=== PATIENT | male | born 1950 | race Caucasian/White ===

== ENCOUNTER 2018-05-30 10:28 | Outpatient (CLI) | payer MEDICARE, OTHER | END 2018-05-30 10:29 | disposition critical access hospital (66) | LOC: EMS 10:28 | PROVIDERS: ATTEND Surgery | DX: R07.9 Chest pain, unspecified (principal); R20.0 Anesthesia of skin | CPT/HCPCS: A0425; A0429 ==

== ENCOUNTER 2018-05-30 10:46 | Emergency (ER) | payer MEDICARE ==
--- NOTE | 2018-05-30 11:05 | ED Physician Documentation ---
PD HPI CHEST PAIN - Stated complaint Stated Complaint: CHEST PAIN - Chief complaint Chief Complaint: Cardiac - History obtained from History obtained from: Patient, EMS - History of Present Illness Timing - onset: Enter time (0800), Today Timing - onset during: Rest Timing - duration: Hours (1) Timing - details: Gradual onset, Now resolved Quality: Pressure, Tightness, Pain Location: Left chest Radiation: Jaw, Neck Improved by: Nitro Associated symptoms: No: Shortness of air, Diaphoresis, Nausea, Vomiting, Feeling faint / dizzy, General Weakness, Palpitations, Cough Similar symptoms before: Diagnosis (angina) Recently seen: Clinic - Additional information Additional information: 68-year-old male with history of prostate cancer has recently undergone a chemotherapy for the prostate cancer and a 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 He was at home today when he developed some hematuria. He passed a clot in his urine and began to feel some pain in his chest on the left side. He describes the pain as a pressure and he had some radiation up into his arm of his neck and into the left side of his head. He did make his way out to his RV to get his nitroglycerin which he has never taken previously. He took a nitroglycerin and at the time the medics arrived the symptoms were mostly resolved. He states that he believes symptoms lasted about 1-1-1/2 hours. He has a prior history of CABG. Review of Systems Constitutional: denies: Fever Eyes: denies: Decreased vision Ears: denies: Ear pain Nose: denies: Congestion Throat: denies: Sore throat Cardiac: reports: Chest pain / pressure. denies: Palpitations, Pedal edema, Calf pain Respiratory: denies: Dyspnea, Cough GI: denies: Abdominal Pain, Nausea, Vomiting : reports: Dysuria, Hematuria Skin: denies: Rash Musculoskeletal: denies: Neck pain, Back pain, Extremity pain PD PAST MEDICAL HISTORY - Present Medications Home Medications: Ambulatory Orders Medication Instructions Recorded Confirmed Albuterol Sulfate [Proair Hfa 05/30/18 05/30/18 Inhaler] Aspirin 05/30/18 Atorvastatin [Lipitor] 05/30/18 Lisinopril 05/30/18 Ondansetron [Ondansetron Odt] 05/30/18 Oxybutynin [Ditropan] 05/30/18 Prochlorperazine Maleate 05/30/18 Senna [Senokot] 05/30/18 Tamsulosin HCl [Flomax] 05/30/18 oxyCODONE/ACET 5/325 [Percocet 5 05/30/18 mg/325 mg] - Allergies Allergies/Adverse Reactions: Allergies Allergy/AdvReac Type Severity Reaction Status Date / Time codeine Allergy Rash Verified 05/30/18 11:03 Penicillins Allergy Unknown Verified 05/30/18 11:03 PD ED PE NORMAL - Vitals Vital signs reviewed: Yes (hypertension ) - General General: Alert and oriented X 3, No acute distress, Well developed/nourished - HEENT HEENT: Atraumatic, PERRL, EOMI - Neck Neck: Supple, no meningeal sign - Cardiac Cardiac: RRR, No murmur - Respiratory Respiratory: No respiratory distress, Clear bilaterally - Abdomen Abdomen: Soft, Non tender - Back Back: No CVA TTP, No spinal TTP - Derm Derm: Normal color, Warm and dry, No rash - Extremities Extremities: No deformity, No edema - Neuro Neuro: Alert and oriented X 3, manager child 2-12 intact, No motor deficit, No sensory deficit, Normal speech Eye Opening: Spontaneous Motor: Obeys Commands Verbal: Oriented GCS Score: 15 - Psych Psych: Normal mood, Normal affect Results - Vitals Vitals: Vital Signs - 24 hr 05/30/18 05/30/18 10:48 13:21 Temperature 36.2 C L Heart Rate 67 61 Respiratory 18 18 Rate Blood Pressure 151/87 H 147/83 H O2 Saturation 96 94 Oxygen O2 Source Room air - EKG (time done) 1122 Rhythm: NSR [place]: LAD Ischemia: Normal ST segments Compare to prior EKG: Old EKG unavailable Computer interpretation: Agree with computer - Labs Labs: Microbiology 05/30/18 12:00 Respiratory Culture - Preliminary Sputum Laboratory Tests 05/30/18 05/30/18 05/30/18 11:20 11:38 11:38 WBC 2.9 L RBC 3.47 L Hgb 11.7 L Hct 33.0 L MCV 95.1 H MCH 33.6 H MCHC 35.3 RDW 12.2 Plt Count 111 L MPV 8.4 Neut # (Auto) 1.5 Lymph # (Auto) 1.1 L Drew # (Auto) 0.3 Eos # (Auto) 0.1 Baso # (Auto) 0.0 Absolute Nucleated RBC 0.00 Nucleated RBC % 0.1 Manual Slide Review Indicated RBC Morph Micro Appear 2+ ANISOCYTOSIS Sodium 137 Potassium 3.9 Chloride 102 Carbon Dioxide 27 Anion Gap 8.0 BUN 20 Creatinine 1.1 Estimated GFR (MDRD) 67 L Glucose 150 H Calcium 9.4 Total Bilirubin 0.5 AST 20 ALT 21 Alkaline Phosphatase 58 Troponin I Total Protein 7.2 Albumin 4.4 Globulin 2.8 Albumin/Globulin Ratio 1.6 Lipase 29 Urine Color LT RED Urine Clarity CLOUDY Urine pH 6.5 Ur Specific [place] <=1.005 Urine Protein 30 H Urine Glucose (UA) NEGATIVE Urine Ketones NEGATIVE Urine Occult Blood LARGE H Urine Nitrite NEGATIVE Urine Bilirubin NEGATIVE Urine Urobilinogen 0.2 (NORMAL) Ur Leukocyte Esterase NEGATIVE Urine RBC TNTC H Urine WBC 0-3 Ur Squamous Epith Cells NONE SEEN Urine Bacteria Rare Ur Microscopic Review INDICATED Urine Culture Comments NOT INDICATED 05/30/18 05/30/18 11:38 13:52 WBC RBC Hgb Hct MCV MCH MCHC RDW Plt Count MPV Neut # (Auto) Lymph # (Auto) Drew # (Auto) Eos # (Auto) Baso # (Auto) Absolute Nucleated RBC Nucleated RBC % Manual Slide Review RBC Morph Micro Appear Sodium Potassium Chloride Carbon Dioxide Anion Gap BUN Creatinine Estimated GFR (MDRD) Glucose Calcium Total Bilirubin AST ALT Alkaline Phosphatase Troponin I < 0.04 < 0.04 Total Protein Albumin Globulin Albumin/Globulin Ratio Lipase Urine Color Urine Clarity Urine pH Ur Specific [place] Urine Protein Urine Glucose (UA) Urine Ketones Urine Occult Blood Urine Nitrite Urine Bilirubin Urine Urobilinogen Ur Leukocyte Esterase Urine RBC Urine WBC Ur Squamous Epith Cells Urine Bacteria Ur Microscopic Review Urine Culture Comments - Rads (name of study) 2 view chest Radiology: Prelim report reviewed (Impression: No acute findings), EMP read indepedently, See rad report PD MEDICAL DECISION MAKING - ED course Complexity details: reviewed results, re-evaluated patient, considered differential, d/w patient ED course: 68-year-old male undergoing treatment for prostate cancer has developed acute hematuria. Along with this he has developed chest pain. His chest pain is resolved it lasted nearly 2 hours and he has 2 negative troponins. I suspect this is not related to a coronary syndrome. The patient has had clots past repeatedly today and he has some anxiety related to this as he has had a prior incident of clot retention and severe pain associated with this. He is asking for the catheter to take home with him should he not be able to urinate. He is diagnosed with atypical chest pain and hematuria without evidence of infection. - Sepsis Event Vital Signs: Vital Signs - 24 hr 05/30/18 05/30/18 10:48 13:21 Temperature 36.2 C L Heart Rate 67 61 Respiratory 18 18 Rate Blood Pressure 151/87 H 147/83 H O2 Saturation 96 94 Oxygen O2 Source Room air Departure - Departure Disposition: 01 Home, Self Care Clinical Impression: Atypical chest pain Hematuria Qualifiers: Hematuria type: gross Qualified Code(s): R31.0 - Gross hematuria Condition: Stable Instructions: ED Chest Pain Atypical Unkn Cause, ED Hematuria Follow-Up: Your, doctor [Other]
[2018-05-30 11:30] LABS: BILIRUBIN,URINE NEGATIVE (NEGATIVE); GLUCOSE, URINE (UA) NEGATIVE (NEGATIVE); KETONES,URINE (UA) NEGATIVE (NEGATIVE); LEUKOCYTE ESTERASE, URINE NEGATIVE (NEGATIVE); NITRITE,URINE NEGATIVE (NEGATIVE); OCCULT BLOOD,URINE LARGE (NEGATIVE); PH,URINE 6.5 PH (5.0-7.5); PROTEIN,URINE 30 mg/dL (NEGATIVE); UROBILINOGEN,URINE 0.2 (NORMAL) E.U./dL (NORMAL)
[2018-05-30 11:31] LABS: CLARITY,URINE CLOUDY (CLEAR)
[2018-05-30 11:37] LABS: RBC,URINE TNTC /HPF (0-5); SQUAMOUS EPITHELIAL CELL,UR NONE SEEN (<= Few)
[2018-05-30 11:38] LABS: BACTERIA,URINE Rare /HPF (None Seen)
[2018-05-30 11:44] LABS: BASOPHILS % (AUTO) 1.3 %; EOSINOPHILS # (AUTO) 0.1 10^3/uL (0.0-0.7); EOSINOPHILS % (AUTO) 1.8 %; HGB - HEMOGLOBIN 11.7 g/dL (14.0-18.0); LYMPHOCYTES # (AUTO) 1.1 10^3/uL (1.5-3.5); LYMPHOCYTES % (AUTO) 36.9 %; MEAN CORPUSCULAR HEMOGLOBIN 33.6 pg (27.0-31.0); MEAN CORPUSCULAR HGB CONC 35.3 g/dL (32.0-36.0); MEAN CORPUSCULAR VOLUME 95.1 fL (80.0-94.0); MEAN PLATELET VOLUME 8.4 fL (7.4-11.4); MONOCYTES # (AUTO) 0.3 10^3/uL (0.0-1.0); MONOCYTES % (AUTO) 9.6 %; NEUTROPHILS # (AUTO) 1.5 10^3/uL (1.5-6.6); NEUTROPHILS % (AUTO) 50.4 %; PLT - PLATELET COUNT 111 10^3/uL (130-450); RED BLOOD COUNT 3.47 10^6/uL (4.70-6.10); RED CELL DISTRIBUTION WIDTH 12.2 % (12.0-15.0); WHITE BLOOD COUNT 2.9 x10^3/uL (4.8-10.8)
[2018-05-30 11:55] LABS: ALBUMIN 4.4 g/dL (3.2-5.5); ALBUMIN/GLOBULIN RATIO 1.6 (1.0-2.2); BILIRUBIN,TOTAL 0.5 mg/dL (0.2-1.0); CALCIUM 9.4 mg/dL (8.5-10.3); CREATININE 1.1 mg/dL (0.6-1.2); TOTAL PROTEIN 7.2 g/dL (6.7-8.2)
--- NOTE | 2018-05-30 12:03 | XRAY Report ---
Reason: chest pain Procedure Date: 05/30/2018 Accession Number: [id number] / [id number] Procedure: XR - Chest 2 View X-Ray CPT Code: 63305 FULL RESULT: EXAM: CHEST RADIOGRAPHY EXAM DATE: 05/30/2018 11:45 AM. CLINICAL HISTORY: Chest pain. COMPARISON: None. TECHNIQUE: 2 views. FINDINGS: Lungs/Pleura: No focal opacities evident. No pleural effusion. No pneumothorax. Normal volumes. Mediastinum: The heart size is normal. Arterial calcifications indicate atherosclerosis. Other: The patient has had a sternotomy. There is mild degenerative disk change in the mid thoracic spine. The tip of the right IJ Port-A-Cath is at the cavoatrial junction. The patient has had a cholecystectomy. IMPRESSION: No acute findings. RADIA
[2018-05-30 12:06] LABS: RBC MORPHOLOGY (MULTIPLE) 2+ ANISOCYTOSIS (NORMAL)
[2018-05-30] MEDS ORDERED: ACETAMINOPHEN 325 MG TABLET PO STA (14:59)
[2018-05-30 15:08] VITALS: BP 144/87
== END 2018-05-30 15:13 | disposition home or self-care (01) ==
LOC: ED 10:46
DX: R07.89 Other chest pain (principal); R31.0 Gross hematuria; C61 Malignant neoplasm of prostate; C79.9 Secondary malignant neoplasm of unspecified site; Z79.899 Other long term (current) drug therapy
CPT/HCPCS: 36415; 71046; 80053; 81001; 83690; 84484; 85025; 87070; 87205; 93005; 99284; A9270; 81003; 87086